=== PATIENT | female | born 1980 | race Caucasian/White ===

== ENCOUNTER → 2016-08-10 | Outpatient (CLI) | payer OTHER | LOC: FIMAGING 10:51 | PROVIDERS: ATTEND Registered Nurse General Practice | DX: Z12.39 Encounter for other screening for malignant neoplasm of breast (principal); N63 Unspecified lump in breast ==

== ENCOUNTER → 2017-05-23 | Outpatient (CLI) | payer OTHER | LOC: CIMAGING 08:03 | PROVIDERS: ATTEND Registered Nurse General Practice | DX: R10.13 Epigastric pain (principal); Z79.899 Other long term (current) drug therapy | CPT/HCPCS: 76700-PO ==